=== PATIENT | male | born 1975 | race Hispanic/Latino ===

== ENCOUNTER 2022-01-02 12:46 | Outpatient (CLI) | payer OTHER ==
[~2022-01-02 12:46] MED LIST: Iopamidol 370 76% 100 ML VIAL ONE
== END 2022-01-02 12:47 | disposition home or self-care (01) ==
LOC: BICCT 12:46
PROVIDERS: ATTEND Urology
DX: N20.2 Calculus of kidney with calculus of ureter (principal); R35.0 Frequency of micturition; R10.84 Generalized abdominal pain; Q62.5 Duplication of ureter
CPT/HCPCS: 74178; Q9967

== ENCOUNTER 2022-04-13 15:13 | Outpatient (CLI) | payer OTHER | END 2022-04-13 15:14 | disposition home or self-care (01) | LOC: ULT 15:13 | PROVIDERS: ATTEND Urology | DX: N20.0 Calculus of kidney (principal); Q62.5 Duplication of ureter; N28.89 Other specified disorders of kidney and ureter | CPT/HCPCS: 74018; 76770 ==

== ENCOUNTER 2022-11-21 11:32 | Outpatient (CLI) | payer SELFPAY | END 2022-11-21 11:33 | disposition home or self-care (01) | LOC: RAD 11:32 | PROVIDERS: ATTEND Urology | DX: N20.0 Calculus of kidney (principal); R35.0 Frequency of micturition | CPT/HCPCS: 74018 ==

== ENCOUNTER 2022-11-30 14:22 | Outpatient (CLI) | payer OTHER | END 2022-11-30 14:23 | disposition home or self-care (01) | LOC: CT 14:22 | PROVIDERS: ATTEND Urology | DX: N20.0 Calculus of kidney (principal); R35.0 Frequency of micturition | CPT/HCPCS: 74176 ==

== ENCOUNTER 2023-05-09 06:13 | Day surgery (SDC) | payer SELFPAY ==
[2023-05-01 10:56] VITALS: BMI 34.0
[2023-05-09] MEDS ORDERED: Lidocaine 1% PF 5 ML VIAL ONE (06:37)
[2023-05-09] MEDS ORDERED: Rocuronium Bromide 10 MG/ML (10ML VIAL) ONE (06:37)
[2023-05-09] MEDS ORDERED: PROPOFOL 20 ML ONE (06:37)
[2023-05-09] MEDS ORDERED: fentaNYL PF 100 MCG/2 ML SYRINGE ONE (06:37)
[2023-05-09] MEDS ORDERED: LevoFLOXacin D5W 500 mg (100 mL) BAG ONE (06:58)
[2023-05-09] MEDS ORDERED: Iopamidol 30 ML ONE (07:09)
[2023-05-09] MEDS ORDERED: ePHEDrine Sulfate 50 MG/10 ML VIAL ONE (07:37)
[2023-05-09] MEDS ORDERED: Ondansetron PF 4 MG/2 ML Vial ONE (08:16)
[2023-05-09] MEDS ORDERED: SUGAMMADEX SODIUM 200 MG/2 ML VIAL ONE (08:16)
[2023-05-09] MEDS ORDERED: Dexamethasone 20 MG/5 ML VIAL ONE (08:17)
[2023-05-09] MEDS ORDERED: Ketorolac Tromethamine 30 MG (1 mL) VIAL ONE (08:48)
[2023-05-09] MEDS ORDERED: Phenazopyridine HCl 100 MG TAB ONE (09:45)
[2023-05-09] MEDS ORDERED: Oxybutynin 5 MG TAB ONE (09:45)
[2023-05-09] MEDS ORDERED: Tamsulosin HCl 0.4 MG CAP ONE (11:18)
== END 2023-05-09 12:05 | disposition home or self-care (01) ==
LOC: SDC 06:13
PROVIDERS: ATTEND Urology
PROC: 0T778DZ Dilation of Left Ureter with Intraluminal Device, Via Natural or Artificial Opening Endoscopic (ICD-10-PCS; principal; 2023-05-09)
PROC: 0TC78ZZ Extirpation of Matter from Left Ureter, Via Natural or Artificial Opening Endoscopic (ICD-10-PCS; principal; 2023-05-09)
PROC: BT14YZZ Fluoroscopy of Kidneys, Ureters and Bladder using Other Contrast (ICD-10-PCS; principal; 2023-05-09)
DX: N20.0 Calculus of kidney (principal)
CPT/HCPCS: 74018; 74420; C1747; C1769; C2617; J1100; J1885; J1956; J2405; J2704; Q9967

== ENCOUNTER 2023-11-08 14:22 | Outpatient (CLI) | payer OTHER | END 2023-11-08 14:23 | disposition home or self-care (01) | LOC: ULT 14:22 | PROVIDERS: ATTEND Urology | DX: N20.0 Calculus of kidney (principal); R35.0 Frequency of micturition; Q62.5 Duplication of ureter | CPT/HCPCS: 74018; 76770 ==